=== PATIENT | female | born 1960 | race Caucasian/White ===

== ENCOUNTER 2019-12-15 00:57 | Emergency (ER) | payer OTHER, SELFPAY ==
[2019-12-15 01:16] VITALS: BP 150/74; PULSE 116; RESP 18; TEMP 36.9; O2SAT 94; BMI 25.8
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
--- NOTE | 2019-12-15 02:09 | PC.NURSE ---
Pt to CT
--- NOTE | 2019-12-15 02:21 | PC.NURSE ---
Pt back from CT
[2019-12-15 02:37] VITALS: RESP 18
[2019-12-15] MEDS: HYDROmorphone 1 mg/mL INJ 1 mL IVP (02:37)
[2019-12-15] MEDS: ondansetron 2 mg/ML SDV 2 mL 4 MG IVP (02:39)
[2019-12-15 02:46] VITALS: BP 164/101; RESP 16
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
[2019-12-15 04:17] VITALS: BP 149/96; PULSE 110; RESP 18; O2SAT 96
== END 2019-12-15 04:17 | disposition home or self-care (01) ==
PROVIDERS: Emergency Provider Emergency Medicine
DX: S06.0X0A Concussion without loss of consciousness, initial encounter (principal); S01.01XA Laceration without foreign body of scalp, initial encounter; V86.99XA Unspecified occupant of other special all-terrain or other off-road motor vehicle injured in nontraffic accident, initial encounter
CPT/HCPCS: 12001; 12345; 70450; 72125; 96374; 96375; 99282; 99283; J1170; J2405